=== PATIENT | female | born 2000 | race Caucasian/White ===

== ENCOUNTER → 2018-04-09 | Outpatient (CLI) | payer BC | LOC: YCFC.O 10:27 | PROVIDERS: ATTEND Nurse Practitioner Family | DX: N91.2 Amenorrhea, unspecified (principal) ==

== ENCOUNTER → 2018-04-14 | Outpatient (CLI) | payer BC | LOC: YCFC.O 12:05 | PROVIDERS: ATTEND Nurse Practitioner Family | DX: N91.2 Amenorrhea, unspecified (principal) ==

== ENCOUNTER 2019-09-13 21:42 | Emergency (ER) | payer BC ==
[2019-09-13] MEDS ORDERED: ONDANSETRON INJ 4 MG/2 ML VIAL IV ONE ×3 (21:52→23:41)
[2019-09-13] MEDS ORDERED: SODIUM CHLORIDE 0.9% 1000ML 1,000 ML IVS ONE (23:33)
--- NOTE | 2019-09-13 23:36 | ED.PDOC ---
History of Present Illness - General Chief Complaint: GI Problem Stated Complaint: nausea, vomiting Time Seen by Provider: 09/13/19 21:50 Additional Information: Patient is a 19-year-old female who presents to the ED with chief complaint of nausea vomiting beginning today. Patient indicates she has vomited multiple times and feels generally weak. Physically denies any upper respiratory symptoms to include cough, shortness of breath, nasal congestion. Abdominal pain and dysuria. She indicates she has had a loose stool with vomiting but no mathew diarrhea. Patient denies history of similar symptoms. Patient's past surgical history is negative. Patient has no other complaints. Review of Systems - Review of Systems Constitutional: Denies: chills, fever EENTM: Denies: nose congestion, throat pain Respiratory: Denies: short of breath, wheezing Cardiology: States: no symptoms reported. Denies: chest pain Gastrointestinal/Abdominal: States: nausea, vomiting. Denies: abdominal pain Genitourinary: States: no symptoms reported. Denies: dysuria, frequency Musculoskeletal: States: no symptoms reported, back pain Skin: Denies: rash Neurological: States: no symptoms reported All other Systems: Reviewed and Negative Past Medical History (General) - Patient Medical History Hx Seizures: No Hx Asthma: No Hx Congestive Heart Failure: No Hx Diabetes: No Surgical History: no surgical history - Vaccination History Hx Tetanus, Diphtheria Vaccination: No Hx Influenza Vaccination: No Family Medical History - Family History Mother Family History: Unknown Physical Exam - Physical Exam General Appearance: Alert, Comfortable, No apparent distress Eyes, Ears, Nose, Throat Exam: pharynx normal Neck: non-tender, full range of motion, supple Respiratory: chest non-tender, lungs clear, normal breath sounds, no respiratory distress Cardiovascular/Chest: normal peripheral pulses, no edema, no gallop, tachycardia Gastrointestinal/Abdominal: normal bowel sounds, non tender, soft, no organomegaly, no pulsatile mass Back Exam: normal inspection, no CVA tenderness Extremity: normal range of motion, non-tender, normal inspection Neurologic: dentofacial orthopedics dentist II-XII nml as tested, no motor/sensory deficits, alert, normal mood/affect, oriented x 3 Skin Exam: normal color, warm/dry Lymphatic: no adenopathy Progress - Progress Progress: 09/14/19 01:33 differential diagnosis includes but is not limited to pyelonephritis, influenza, volume depletion, electrolyte disorder Patient is feeling much better at this time status post IV fluids. Her UA shows a UTI and clinically patient's vomiting is from pyelonephritis. Patient's WBC is elevated but her lactic acid is normal and she is not septic. IV Rocephin given and urine cultured. Patient offered admission but she requests a trial of outpatient treatment, indicating that she will return to the ED if her symptoms worsen. Vital signs stable, patient NAD and looks clinically well and her heart rate is down nicely into the 80s on the monitor at this time, and I believe is safe for discharge with outpatient follow-up. Follow-up instructions, discharge instructions and return to ED precautions discussed with patient. Patient voices understanding and willingness to comply with instructions. All laborat ory and radiographic results have been discussed with the patient, and all questions answered. Patient is happy with plan. Departure - Departure Clinical Impression: Pyelonephritis, Volume depletion Vomiting Qualifiers: Vomiting type: unspecified Vomiting Intractability: non-intractable Nausea presence: with nausea Qualified Code(s): R11.2 - Nausea with vomiting, unspecified Disposition: Discharge to Home or Self Care Condition: Good Departure Forms: ED Discharge - Pt. Copy, Patient Portal Self Enrollment Instructions: Kidney Infection Referrals: ABIOLA THOMPSON [Primary Care Provider] - 1-5 Days Prescriptions: Acetaminophen W/ Codeine [Tylenol W/ CODEINE #3] 1 ea PO Q6H PRN #20 PRN Reason: Pain Ciprofloxacin HCl [Cipro] 500 mg PO BID #20 tab Metoclopramide Tab [Reglan Tab] 10 mg PO Q6H PRN #10 tab PRN Reason: Vomiting Home Medications: Ambulatory Orders Acetaminophen W/ Codeine [Tylenol W/ CODEINE #3] 1 ea PO Q6H PRN #20 09/14/19 Ciprofloxacin HCl [Cipro] 500 mg PO BID #20 tab 09/14/19 Metoclopramide Tab [Reglan Tab] 10 mg PO Q6H PRN #10 tab 09/14/19
[2019-09-13] MEDS ORDERED: SODIUM CHLORIDE 0.9% 1000ML 2,000 ML IVS ONE (23:41)
[2019-09-13] MEDS ORDERED: cefTRIAXone SODIUM 1 GM in SODIUM CHL 0.9% 50ML MIN-BAG+ 50 ML IVPB ONE (23:42)
[2019-09-14] MEDS ORDERED: cefTRIAXone SODIUM 1 GM VIAL ONE (00:01)
[2019-09-14] MEDS ORDERED: SODIUM CHL 0.9% 50ML MIN-BAG+ 50 ML IVPB ONE (00:01)
[2019-09-14] MEDS ORDERED: METOCLOPRAMIDE HCL INJ 10 MG/2 ML VIAL IV ONE (01:37)
[2019-09-14] MEDS ORDERED: CIPROFLOXACIN 500 MG TAB (ER DISPENSE) PO ONE (02:00)
[2019-09-14] MEDS ORDERED: ONDANSETRON ODT (ER DISP) 8 MG TAB PO ONE (02:00)
[2019-09-14 02:18] VITALS: BP 111/78; TEMP 98.7; O2SAT 96
== END 2019-09-14 02:10 | disposition home or self-care (01) ==
LOC: ER 21:42
DX: N12 Tubulo-interstitial nephritis, not specified as acute or chronic (principal); E86.9 Volume depletion, unspecified; R11.2 Nausea with vomiting, unspecified
CPT/HCPCS: 80053; 81001; 81025; 83605; 85025; 87040; 87086; 87502; J0696; J2405; J2765; J7030; J7050